=== PATIENT | male | born 1940 | race African-American/Black ===

== ENCOUNTER 2017-12-15 16:10 | Inpatient (IN) | payer MEDICARE, BC ==
[2017-12-15 16:27] LABS: ADD MAN DIFF? NO
[2017-12-15 16:28] LABS: BASO % 0 % (0-3); EOS % 0 % (0-3); HEMATOCRIT 44.8 % (39.0-53.0); HEMOGLOBIN 14.7 g/dL (13.0-17.5); LYMPH # 2.8 x10^3/uL (1.0-4.8); LYMPH % 31 % (24-48); MEAN CORPUSCULAR HEMOGLOBIN 31 pg (25-35); MEAN CORPUSCULAR HGB CONC 33 g/dL (31-37); MEAN CORPUSCULAR VOLUME 94 fL (79-100); MONO # 0.8 x10^3/uL (0.0-1.1); MONO % 8 % (0-9); NEUT # 5.5 x10^3uL (1.8-7.7); NEUT % 60 % (31-73); PLATELET COUNT 184 x10^3/uL (140-400); RED BLOOD COUNT 4.78 x10^6/uL (4.30-5.70); RED CELL DISTRIBUTION WIDTH 15.3 % (11.5-14.5); WHITE BLOOD COUNT 9.1 x10^3/uL (4.0-11.0)
[2017-12-15] MEDS ORDERED: HEPARIN for IV BOLUS 10,000 UNIT/10 ML VIAL. IV (16:30)
[2017-12-15 16:41] LABS: ANION GAP 7 (6-14); BLOOD UREA NITROGEN 14 mg/dL (8-26); BUN/CREATININE RATIO 8 (6-20); CALCIUM 8.6 mg/dL (8.5-10.1); CARBON DIOXIDE 24 mmol/L (21-32); CHLORIDE 105 mmol/L (98-107); CREATININE 1.7 mg/dL (0.7-1.3); GFR 47.4; GLUCOSE 166 mg/dL (70-99); POTASSIUM 3.5 mmol/L (3.5-5.1); SODIUM 136 mmol/L (136-145)
[2017-12-15 16:43] LABS: D-DIMER 2.98 ug/mlFEU (0.00-0.50)
[2017-12-15] MEDS: IPRATRPIUM/ALBUTEROL 0.5/2.5MG 3 ML NEBU. NEB (16:43)
[2017-12-15 16:46] LABS: ALBUMIN 3.4 g/dL (3.4-5.0); ALK PHOS 67 U/L (46-116); ALT (SGPT) 46 U/L (16-63); AST (SGOT) 45 U/L (15-37); TOTAL BILIRUBIN 0.6 mg/dL (0.2-1.0); TOTAL PROTEIN 6.9 g/dL (6.4-8.2)
[2017-12-15] MEDS ORDERED: IODIXANOL 320 MG/ML 100 ML VIAL. ×2 (16:46→17:10)
[2017-12-15] MEDS ORDERED: LIDOCAINE 2% 20 ML VIAL. (16:46)
[2017-12-15] MEDS: ASPIRIN CHEWABLE 81 MG TABLET. PO (16:47)
[2017-12-15] MEDS ORDERED: HEPARIN for IV BOLUS 10,000 UNIT/10 ML VIAL. (16:48)
[2017-12-15] MEDS ORDERED: MIDAZOLAM HCL/PF 2 MG/2 ML VIAL. (16:48)
[2017-12-15] MEDS ORDERED: fentaNYL PF VIAL 100 MCG/2 ML VIAL (16:48)
[2017-12-15] MEDS: FUROSEMIDE 40 MG/4 ML VIAL. IVP (16:48)
[2017-12-15 16:50] LABS: TROPONINI 0.334 ng/mL (0.000-0.055)
[2017-12-15 16:51] LABS: NT-PRO BNP 4391 pg/mL (0-449)
[2017-12-15] MEDS: HEPARIN for IV BOLUS 10,000 UNIT/10 ML VIAL. IV ×2 (16:52→17:51)
[2017-12-15 16:59] LABS: LACTIC ACID 3.6 mmol/L (0.4-2.0)
[2017-12-15] MEDS ORDERED: HEPARIN 25,000UTS/500ML PREMIX 500 ML IV (17:00)
[2017-12-15 17:01] LABS: INR 1.1 (0.8-1.1); PROTHROMBIN TIME PATIENT 13.2 SEC (11.7-14.0)
[2017-12-15] MEDS ORDERED: TIROFIBAN 5MG -0.9% NS 100 ML IV (17:15)
[2017-12-15] MEDS: TIROFIBAN 5MG -0.9% NS 100 ML IV (17:21)
[2017-12-15] MEDS ORDERED: PRASUGREL 10 MG TABLET. (17:37)
[2017-12-15] MEDS: IODIXANOL 320 MG/ML 100 ML VIAL. IART (17:47)
[2017-12-15] MEDS: LIDOCAINE 2% 20 ML VIAL. IJ (17:47)
[2017-12-15] MEDS: PRASUGREL 10 MG TABLET. PO (17:52)
[2017-12-15] MEDS ORDERED: LIDOCAINE 2% 100 MG/5 ML SYRINGE. IV (18:00)
[2017-12-15] MEDS ORDERED: 0.9 % SODIUM CHLORIDE 10 ML DISP.SYRIN. IV (18:00)
[2017-12-15] MEDS ORDERED: AMIODARONE 150 MG in IV DEXTROSE 5% 100ML 100 ML IV (18:00)
[2017-12-15] MEDS ORDERED: ATROPINE 0.5 MG/5 ML DISP.SYRINGE. IV (18:00)
[2017-12-15] MEDS ORDERED: fentaNYL PF VIAL 100 MCG/2 ML VIAL IV (18:00)
[2017-12-15] MEDS ORDERED: ACETAMINOPHEN 325 MG TABLET. PO (18:00)
[2017-12-15] MEDS ORDERED: NITROGLYCERIN SUBLINGUAL 0.4 MG BOTTLE OF 25. SL (18:00)
[2017-12-15 20:23] LABS: LACTIC ACID 1.3 mmol/L (0.4-2.0); TROPONINI 20.459 ng/mL (0.000-0.055)
[2017-12-15 20:28] LABS: CKMB INDEX 4.8 % (0-4); CKMB MASS 19.6 ng/mL (0.0-3.6); CREATINE KINASE 409 U/L (39-308)
[2017-12-15] MEDS: ATORVASTATIN CALCIUM 40 MG TABLET. PO (21:15)
[2017-12-15] MEDS: ALBUTEROL SULFATE 2.5 MG/3 ML NEBU. NEB (22:44)
[2017-12-16 04:42] LABS: CKMB INDEX 5.6 % (0-4); CKMB MASS 24.6 ng/mL (0.0-3.6); CREATINE KINASE 441 U/L (39-308)
[2017-12-16 04:48] LABS: ALBUMIN 2.7 g/dL (3.4-5.0); ALK PHOS 56 U/L (46-116); ALT (SGPT) 39 U/L (16-63); ANION GAP 6 (6-14); AST (SGOT) 80 U/L (15-37); BLOOD UREA NITROGEN 13 mg/dL (8-26); CARBON DIOXIDE 26 mmol/L (21-32); CHLORIDE 107 mmol/L (98-107); CHOLESTEROL 173 mg/dL (0-200); CREATININE 1.5 mg/dL (0.7-1.3); DIRECT BILIRUBIN 0.2 mg/dL (0.0-0.2); GFR 54.8; GLUCOSE 92 mg/dL (70-99); HDLC 58 mg/dL (40-60); LDLC 104 mg/dL (0-100); NON-HDL CHOLESTEROL 115 mg/dL (0-129); POTASSIUM 3.7 mmol/L (3.5-5.1); SODIUM 139 mmol/L (136-145); TOTAL BILIRUBIN 0.7 mg/dL (0.2-1.0); TOTAL PROTEIN 5.8 g/dL (6.4-8.2); TRIGLYCERIDES 57 mg/dL (0-150); VLDLC 11 mg/dL (0-40)
[2017-12-16 04:58] LABS: TROPONINI 36.024 ng/mL (0.000-0.055)
[2017-12-16 05:02] LABS: THYROID STIM HORMONE (TSH) 2.155 uIU/mL (0.358-3.74)
[2017-12-16] MEDS: PRASUGREL 10 MG TABLET. PO (08:25)
[2017-12-16] MEDS: ASPIRIN ENTERIC COATED 81 MG TABLET.DR. PO (08:25)
[2017-12-16 09:35] LABS: ISTAT ACT 160 sec (92-181)
[2017-12-16 10:02] LABS: AGAP ISTAT 17 mmol/L (6-14); BUN ISTAT 14 mg/dL (8-26); CHLORIDE ISTAT 105 mmol/L (98-110); CREATININE ISTAT 1.5 mg/dL (0.5-1.4); GLUCOSE ISTAT 160 mg/dL (70-99); HEMATOCRIT ISTAT 45 % (37-52); HEMOGLOBIN ISTAT 15.3 g/dL (14-18); ION CA ISTAT 1.18 mmol/L (1.13-1.32); POTASSIUM ISTAT 3.5 mmol/L (3.5-5.0); SODIUM ISTAT 138 mmol/L (135-145); TOT CO2 ISTAT 21 mmol/L (23-32)
[2017-12-16 10:04] LABS: TROPONIN BY ISTAT 0.14 ng/ml (<0.08)
[2017-12-16] MEDS ORDERED: ENOXAPARIN 40 MG/0.4 ML SYRINGE. SQ (14:00)
[2017-12-16 14:24] LABS: MRSA BY PCR Negative (Negative)
[2017-12-16] MEDS: ATORVASTATIN CALCIUM 40 MG TABLET. PO (20:51)
[2017-12-16] MEDS: ENOXAPARIN 40 MG/0.4 ML SYRINGE. SQ (20:52)
[2017-12-17 04:34] LABS: ADD MAN DIFF? NO
[2017-12-17 04:45] LABS: BASO % 0 % (0-3); EOS # 0.1 x10^3/uL (0.0-0.7); EOS % 1 % (0-3); HEMATOCRIT 39.6 % (39.0-53.0); HEMOGLOBIN 13.5 g/dL (13.0-17.5); LYMPH # 2.1 x10^3/uL (1.0-4.8); LYMPH % 31 % (24-48); MEAN CORPUSCULAR HEMOGLOBIN 31 pg (25-35); MEAN CORPUSCULAR HGB CONC 34 g/dL (31-37); MEAN CORPUSCULAR VOLUME 92 fL (79-100); MONO # 0.8 x10^3/uL (0.0-1.1); MONO % 11 % (0-9); NEUT # 3.9 x10^3uL (1.8-7.7); NEUT % 57 % (31-73); PLATELET COUNT 141 x10^3/uL (140-400); RED BLOOD COUNT 4.29 x10^6/uL (4.30-5.70); RED CELL DISTRIBUTION WIDTH 15.2 % (11.5-14.5); WHITE BLOOD COUNT 6.8 x10^3/uL (4.0-11.0)
[2017-12-17 05:19] LABS: ANION GAP 7 (6-14); BLOOD UREA NITROGEN 18 mg/dL (8-26); CALCIUM 7.9 mg/dL (8.5-10.1); CARBON DIOXIDE 25 mmol/L (21-32); CHLORIDE 106 mmol/L (98-107); CREATININE 1.7 mg/dL (0.7-1.3); GFR 47.4; GLUCOSE 89 mg/dL (70-99); POTASSIUM 3.8 mmol/L (3.5-5.1); SODIUM 138 mmol/L (136-145)
[2017-12-17] MEDS: PRASUGREL 10 MG TABLET. PO (09:04)
[2017-12-17] MEDS: ASPIRIN ENTERIC COATED 81 MG TABLET.DR. PO (09:05)
== END 2017-12-17 19:02 | disposition home or self-care (01) | DRG 246 ==
LOC: 2 NORTH 12-16 15:26 → ER 16:10 → 1 WEST ICU 16:20
PROC: 027034Z Dilation of Coronary Artery, One Artery with Drug-eluting Intraluminal Device, Percutaneous Approach (ICD-10-PCS; principal; 2017-12-15)
PROC: 4A023N7 Measurement of Cardiac Sampling and Pressure, Left Heart, Percutaneous Approach (ICD-10-PCS; 2017-12-15)
PROC: B2111ZZ Fluoroscopy of Multiple Coronary Arteries using Low Osmolar Contrast (ICD-10-PCS; 2017-12-15)
PROC: B2151ZZ Fluoroscopy of Left Heart using Low Osmolar Contrast (ICD-10-PCS; 2017-12-15)
DX: I21.09 ST elevation (STEMI) myocardial infarction involving other coronary artery of anterior wall (principal); J96.01 Acute respiratory failure with hypoxia; I50.23 Acute on chronic systolic (congestive) heart failure; E78.5 Hyperlipidemia, unspecified; I25.5 Ischemic cardiomyopathy; N18.3 Chronic kidney disease, stage 3 (moderate); I25.2 Old myocardial infarction; Z60.2 Problems related to living alone; I25.10 Atherosclerotic heart disease of native coronary artery without angina pectoris
CPT/HCPCS: 36415; 37184; 71045; 80047; 80048; 80053; 80061; 80076; 82553; 83605; 83880; 84443; 84484; 85025; 85347; 85379; 85610; 87040; 87641; 92941; 93005; 93306; 93458; 94640; 96374; 96375; 97161-GP; 99285; 99285-25; C1713; C1725; C1769; C1892; J1644; J1650; J1940; J2001; J7613; J7620

== ENCOUNTER → 2018-01-14 | Outpatient (CLI) | payer MEDICARE, BC ==
[2018-01-14 13:04] LABS: ANION GAP 6 (6-14); BLOOD UREA NITROGEN 24 mg/dL (8-26); CALCIUM 9.6 mg/dL (8.5-10.1); CARBON DIOXIDE 28 mmol/L (21-32); CHLORIDE 105 mmol/L (98-107); CREATININE 1.6 mg/dL (0.7-1.3); GFR 50.8; GLUCOSE 89 mg/dL (70-99); MAGNESIUM 2.1 mg/dL (1.8-2.4); POTASSIUM 3.9 mmol/L (3.5-5.1); SODIUM 139 mmol/L (136-145)
== END | disposition home or self-care (01) ==
LOC: LAB 12:21
DX: I25.5 Ischemic cardiomyopathy (principal); E78.5 Hyperlipidemia, unspecified; N18.3 Chronic kidney disease, stage 3 (moderate); I25.10 Atherosclerotic heart disease of native coronary artery without angina pectoris; I25.2 Old myocardial infarction; Z87.891 Personal history of nicotine dependence
CPT/HCPCS: 36415; 80048; 83735

== ENCOUNTER → 2018-04-25 | Outpatient (CLI) | payer MEDICARE, BC ==
[2017-12-17 10:45] VITALS: BP 88/59
[~2018-04-25] MED LIST: ASPI-612 PO; ATOR40TA59 PO; MULT1TAB52 PO; PRAS10TA9 PO
--- NOTE | 2018-04-25 10:38 | CARD ---
MR#: [id number] Date of Study: 04/25/2018 Ordering Physician: ARTEMIO RITTER, Referring Physician: ARTEMIO RITTER, Tech: Rosemary Valdez RAMONITA APPROVED REPORT EXAM: Two-dimensional and M-mode echocardiogram with Doppler and color Doppler. Other Information Quality : GoodHR: 66bpm Rhythm : NSR INDICATION Cardiomyopathy 2D DIMENSIONS RVDd3.5 (2.9-3.5cm)Left Atrium(2D)4.4 (1.6-4.0cm) IVSd1.5 (0.7-1.1cm)Aortic Root(2D)4.1 (2.0-3.7cm) LVDd6.2 (3.9-5.9cm)LVOT Diameter2.2 (1.8-2.4cm) PWd0.9 (0.7-1.1cm)LVDs5.3 (2.5-4.0cm) FS (%) 14.3 %SV57.8 ml LVEF(%)30.0 (>50%) M-Mode DIMENSIONS Left Atrium(MM)4.72 (2.5-4.0cm)Aortic Root3.82 (2.2-3.7cm) Aortic Valve AoV Peak Alex.138.4cm/sAoV VTI32.1cm AO Peak GR.7.7mmHgLVOT Peak Alex.97.6cm/s AO Mean GR.4mmHgAVA (VMAX)2.73cm2 EITAN (VTI)2.80uw3ZJ P 1/2 Iwmc340rv Mitral Valve MV E Tbtahgmv42.8cm/sMV E Peak Gr.5mmHg MV DECEL FWLF483sqHT A Jldflqlo600.5cm/s MV E Mean Gr.1mmHgE/A Ratio0.5 MV A Wmhihugt678ze Pulmonary Valve PV Peak Wcahmxco580.9cm/s Tricuspid Valve TR P. Alngveyy601te/sRAP CHOFMTWQ5bmZv TR Peak Gr.85waTxJBBD58tlCa LEFT VENTRICLE The Left Ventricle is mildly dilated. Proximal septal thickening is noted. The systolic function is m oderately impaired. The Ejection Fraction is 30-35%. There is global hypokinesis of the left ventricl e. Transmitral Doppler flow pattern is Grade I-abnormal relaxation pattern. RIGHT VENTRICLE The right ventricle is normal size. There is normal right ventricular wall thickness. The right ventr icular systolic function is normal. ATRIA The left atrium is moderately dilated. The right atrium size is normal. The interatrial septum is int act with no evidence for an atrial septal defect or patent foramen ovale as noted on 2-D or Doppler i maging. AORTIC VALVE The aortic valve is trileaflet. The aortic valve is normal in structure and function. Doppler and Col or Flow revealed mild aortic regurgitation. There is no significant aortic valvular stenosis. MITRAL VALVE The mitral valve is normal in structure and function. There is no evidence of mitral valve prolapse. There is no mitral valve stenosis. Doppler and Color-flow revealed mild mitral regurgitation. TRICUSPID VALVE The tricuspid valve is normal in structure and function. Doppler and Color Flow revealed trace to mil d tricuspid regurgitation. The PA pressure was estimated at 31 mmHg. There is no tricuspid valve prol apse or vegetation. There is no tricuspid valve stenosis. PULMONIC VALVE Doppler and Color Flow revealed trace pulmonic valvular regurgitation. There is no pulmonic valvular stenosis. GREAT VESSELS The aortic root is mildly enlarged. The ascending aorta is normal in size. The IVC is normal in size and collapses >50% with inspiration. PERICARDIAL EFFUSION There is a trace pericardial effusion. Critical Notification Critical Value: No <Conclusion> The systolic function is moderately impaired. The Ejection Fraction is 30-35%. There is global hypokinesis of the left ventricle. Doppler and Color Flow revealed trace to mild tricuspid regurgitation. The PA pressure was estimated at 31 mmHg. Signed by : Artemio Ritter, Electronically Approved : 04/25/2018 10:37:42
== END | disposition home or self-care (01) ==
LOC: ECHO 08:12
PROVIDERS: ATTEND Internal Medicine Cardiovascular Disease
DX: I08.3 Combined rheumatic disorders of mitral, aortic and tricuspid valves (principal)
CPT/HCPCS: 93306

== ENCOUNTER → 2018-10-31 | Outpatient (CLI) | payer MEDICARE, BC ==
[2017-12-17 10:45] VITALS: BP 88/59
--- NOTE | 2018-10-31 09:04 | CARD ---
MR#: [id number] Date of Study: 10/31/2018 Ordering Physician: ARTEMIO RITTER, Referring Physician: ARTEMIO RITTER, Tech: Rosemary Valdez [facility] APPROVED REPORT EXAM: Two-dimensional and M-mode echocardiogram with Doppler and color Doppler. Other Information Quality : Good Rhythm : NSR INDICATION Cardiomyopathy 2D DIMENSIONS RVDd3.5 (2.9-3.5cm)Left Atrium(2D)4.5 (1.6-4.0cm) IVSd1.2 (0.7-1.1cm)Aortic Root(2D)4.0 (2.0-3.7cm) LVDd5.9 (3.9-5.9cm)LVOT Diameter2.1 (1.8-2.4cm) PWd1.1 (0.7-1.1cm)LVDs4.8 (2.5-4.0cm) FS (%) 15.3 %SV51.1 ml LVEF(%)32.0 (>50%) M-Mode DIMENSIONS Left Atrium(MM)4.90 (2.5-4.0cm)Aortic Root4.16 (2.2-3.7cm) Aortic Valve AoV Peak Alex.120.1cm/sAoV VTI23.0cm AO Peak GR.5.8mmHgLVOT Peak Alex.102.8cm/s AO Mean GR.3mmHgAVA (VMAX)3.03cm2 EITAN (VTI)3.26sz1HO P 1/2 Nfar085rk Mitral Valve MV E Ocjpgygp29.0cm/sMV E Peak Gr.103mmHg MV DECEL SQDH361ukFD A Ohcnmdxi58.6cm/s MV E Mean Gr.1mmHgE/A Ratio1.2 MV A Obbdpxyp222jp Pulmonary Valve PV Peak Rurmhihq715.8cm/s Tricuspid Valve TR P. Lbujpbkl609al/sRAP EDXIDHFE2tzEa TR Peak Gr.50eqUiMADY35zxMm LEFT VENTRICLE The Left Ventricle is mildly dilated. There is mild concentric left ventricular hypertrophy. The left ventricular systolic function is moderately impaired. The Ejection Fraction is 35-40%. There is glob al hypokinesis of the left ventricle. Transmitral Doppler flow pattern is Grade II-pseudonormal filli ng dynamics. RIGHT VENTRICLE The right ventricle is borderline dilated. There is normal right ventricular wall thickness. The righ t ventricular systolic function is normal. ATRIA The left atrium is mildly dilated. The right atrium is mildly dilated. The interatrial septum is inta ct with no evidence for an atrial septal defect or patent foramen ovale as noted on 2-D or Doppler im aging. AORTIC VALVE The aortic valve is normal in structure and function. The aortic valve is trileaflet. Doppler and Col or Flow revealed mild aortic regurgitation. There is no significant aortic valvular stenosis. MITRAL VALVE The mitral valve is thickened but opens well. There is no evidence of mitral valve prolapse. There is no mitral valve stenosis. Doppler and Color-flow revealed mild to moderate mitral regurgitation. TRICUSPID VALVE The tricuspid valve is normal in structure and function. Doppler and Color Flow revealed mild tricusp id regurgitation. There is mild pulmonary hypertension. The PA pressure was estimated at 33 mmHg. The re is no tricuspid valve prolapse or vegetation. There is no tricuspid valve stenosis. PULMONIC VALVE The pulmonic valve is not well visualized. GREAT VESSELS The aortic root is mildly enlarged. The ascending aorta is normal in size. The IVC is normal in size and collapses >50% with inspiration. PERICARDIAL EFFUSION There is no evidence of significant pericardial effusion. Critical Notification Critical Value: No <Conclusion> The left ventricular systolic function is moderately impaired. The Ejection Fraction is 35-40%. Mild aortic regurgitation. Mild to moderate mitral regurgitation. Mild tricuspid regurgitation. The PA pressure was estimated at 33 mmHg. There is no evidence of significant pericardial effusion. Signed by : Adin Goncalves, Electronically Approved : 10/31/2018 09:03:43
== END | disposition home or self-care (01) ==
LOC: ECHO 07:20
PROVIDERS: ATTEND Internal Medicine Cardiovascular Disease
DX: I08.3 Combined rheumatic disorders of mitral, aortic and tricuspid valves (principal); I27.20 Pulmonary hypertension, unspecified; I25.5 Ischemic cardiomyopathy
CPT/HCPCS: 93306

== ENCOUNTER → 2019-12-01 | Outpatient (CLI) | payer MEDICARE, BC ==
[2017-12-17 10:45] VITALS: BP 88/59
[~2019-12-01] MED LIST changes: +MULT-445 PO; -MULT1TAB52 PO; +REGADENOSON 0.4 MG/5 ML DISP.SYRIN. IV ONE
--- NOTE | 2019-12-01 12:53 | RAD ---
MR#: [id number] Date of Study: 12/01/2019 Ordering Physician: ARTEMIO RITTER, Referring Physician: JEFF LAMB Tech: RT [place] (R) (N) APPROVED REPORT Test Type: Pharmacological Stress Nurse/Tech: Perri VILLAVICENCIO Test Indications: Ischemic Cardiomyopathy Cardiac History: Cardiac stent x1, See EMR Medications: See EMR Medical History: See EMR Resting ECG: SR Resting Heart Rate: 65 bpm Resting Blood Pressure: 126/77mmHg Pretest Chest Pain: No chest pain Nurse/Tech Notes Lungs CTA, Heart tones regular. Consent: The procedure was explained to the patient in lay terms. Informed consent was witnessed. Rogelio eout was entered into [employer]. History and Stress Test performed by ASHLEIGH Roca Pharm. Details Pharmacologic stress testing was performed using 0.4mg per 5ml of regadenoson given intravenously ove r 7-10 seconds. POST EXERCISE Reason for Termination: Infusion complete Max HR: 94 bpm Max Blood Pressure: 126/67mmHg Blood Pressure response to exercise: Normal blood pressure response during stress. Heart Rate response to exercise: WNL Chest Pain: No. Arrhythmia: Yes. few PVCs ST Change: No. INTERPRETATION Stress EKG Conclusion: Baseline EKG showed sinus rhythm. No ischemic changes at peak stress. Few PV Cs without any significant arrhythmias. Imaging Protocol IMAGE PROTOCOL: Rest Tc-99m/stress Tc-99m 1 day Rest: Stress: Viability: Radiopharm.Tc99m XmlcsrkflBe93m Sestamibi Npbs99oEu 32.6mCi Duration 15min. 10min. Img Date 12/01/2019 12/01/2019 Inj-Img Ipai43gyq. 60min. Rest Admin Site:IV - Left HandAdministrator:RT Reinaldo (Zo)(N) Stress Admin Site: IV - Left HandAdministrator: ASHLEIGH Roca STRESS DATA Av. Heart Rate74.0bpmCO Index BSA0.0L/min LV Perfusion Scintigraphic images showed a large predominantly fixed defect involving the entire lateral wall, ext ending into the anterolateral, inferolateral and inferior hensley consistent with previous myocardial i nfarction with small amount of reversibility consistent with chuy-infarct ischemia. Wall Motion Severe hypokinesis of the lateral wall with ejection fraction calculated at 44%. LV Perf. Quant 17 Seg. SSS28.00 17 Seg. SRS28.00 17 Seg. SDS3.00 Stress Defect Extent (% LAD)11.30Rest Defect Extent (% LAD)2.50Rev. Defect Extent (% LAD)11.30 Stress Defect Extent (% LCX) 100.00Rest Defect Extent (% LCX)96.30Rev. Defect Extent (% LCX)33.8 0 Stress Defect Extent (% RCA)30.00Rest Defect Extent (% RCA)66.70Rev. Defect Extent (% RCA)21.10 Stress Defect Extent (% TAMMY)43.00Rest Defect Extent (% TAMMY)40.70Rev. Defect Extent (% TAMMY)28.90 Conclusion 1. Regadenoson cardioisotope stress test showed large infarct involving the entire lateral wall and e xtending into the anterolateral, inferolateral and inferior hensley with small amount of chuy-infarct i schemia. 2. Severe hypokinesis of the lateral wall with ejection fraction calculated at 44%. 3. Low to intermediate risk for cardiac events. Signed by : Adin Goncalves, Electronically Approved : 12/01/2019 12:53:17
== END | disposition home or self-care (01) ==
LOC: NM 08:30
PROVIDERS: ATTEND Internal Medicine Cardiovascular Disease
DX: I21.19 ST elevation (STEMI) myocardial infarction involving other coronary artery of inferior wall (principal); I25.9 Chronic ischemic heart disease, unspecified; I25.5 Ischemic cardiomyopathy
CPT/HCPCS: 78452; 93017; A9500; J2785

== ENCOUNTER → 2020-04-25 | Outpatient (CLI) | payer MEDICARE, BC ==
[2017-12-17 10:45] VITALS: BP 88/59
[~2020-04-25] MED LIST changes: -ASPI-612 PO; +ASPI-886 PO; +LISI2.5T PO; +METO-239 PO; -REGADENOSON 0.4 MG/5 ML DISP.SYRIN. IV ONE
[2020-04-25 15:57] LABS: BASO % 0 % (0-3); EOS # 0.1 x10^3/uL (0.0-0.7); EOS % 2 % (0-3); HEMOGLOBIN 13.9 g/dL (13.0-17.5); LYMPH # 2.1 x10^3/uL (1.0-4.8); LYMPH % 34 % (24-48); MEAN CORPUSCULAR HEMOGLOBIN 31 pg (25-35); MEAN CORPUSCULAR HGB CONC 34 g/dL (31-37); MEAN CORPUSCULAR VOLUME 90 fL (79-100); MONO # 0.6 x10^3/uL (0.0-1.1); MONO % 10 % (0-9); NEUT # 3.3 x10^3/uL (1.8-7.7); NEUT % 54 % (31-73); PLATELET COUNT 155 x10^3/uL (140-400); RED BLOOD COUNT 4.53 x10^6/uL (4.30-5.70); RED CELL DISTRIBUTION WIDTH 13.9 % (11.5-14.5); WHITE BLOOD COUNT 6.1 x10^3/uL (4.0-11.0)
[2020-04-25 16:06] LABS: PROTHROMBIN TIME PATIENT 13.3 SEC (11.7-14.0)
[2020-04-25 16:16] LABS: ALBUMIN 3.4 g/dL (3.4-5.0); ALBUMIN/GLOBULIN RATIO 0.9 (1.0-1.7); CALCIUM 9.2 mg/dL (8.5-10.1); CREATININE 1.5 mg/dL (0.7-1.3); GFR 54.3; POTASSIUM 3.9 mmol/L (3.5-5.1); TOTAL BILIRUBIN 0.4 mg/dL (0.2-1.0); TOTAL PROTEIN 7.3 g/dL (6.4-8.2)
== END ==
LOC: SURGPAT 15:09
PROVIDERS: ATTEND Specialist
DX: Z01.812 Encounter for preprocedural laboratory examination (principal); K40.90 Unilateral inguinal hernia, without obstruction or gangrene, not specified as recurrent; Z20.828 Contact with and (suspected) exposure to other viral communicable diseases
CPT/HCPCS: 80053; 85025; 85610; 85730; U0003

== ENCOUNTER 2020-04-29 07:34 | Day surgery (SDC) | payer MEDICARE, BC ==
[~2020-04-29] VITALS: Ht 175.3 cm; Wt 74.8 kg
[~2020-04-29 07:34] MED LIST changes: +BUPIVACAINE-EPI 0.5%-1:200000 MPF 30 ML VIAL. INJ ONE; +HYDROmorphone 2 MG/ML VIAL IV PRN; +IV RINGERS,LACTATED 1000ML 1,000 ML IV SCH; +LIDOCAINE 1% PF 2 ML VIAL. ID PRN; +MORPHINE SULFATE 2 MG/ML VIAL. IV PRN; +ONDANSETRON PF 4 MG/2 ML VIAL. IV PRN; +PROCHLORPERAZINE 10 MG/2 ML VIAL. IV PRN; +ceFAZolin SODIUM IV Push 1 GM VIAL. IVP PRN; +fentaNYL PF VIAL 100 MCG/2 ML VIAL IV PRN
--- NOTE | 2020-04-29 08:00 | PREOP HP ---
DATE OF SERVICE: HISTORY OF PRESENT ILLNESS: The patient is referred to me because of a mass in the left inguinal area. The history is that he has had this for a few months, it is getting larger and it goes down sometimes, but most of the time it is up, has some discomfort, but no excruciating pain. PAST MEDICAL HISTORY: Shows normal childhood diseases. He denies any surgery, but has had a heart attack about 3-4 years ago and had a stent put in. He takes heart medicine and also takes anticoagulant, but he does not know what type at this point. He has no allergies and he states not to take medicine for any other diseases. ALLERGIES: He has no allergies. REVIEW OF SYSTEMS: Negative as he had no other difficulties except for this mass, which causes him some problems in the left inguinal area. FAMILY HISTORY: Noncontributory. PHYSICAL EXAMINATION: GENERAL: Shows an alert male, in no acute distress. HEAD, EYES, EARS, NOSE, AND THROAT: Grossly normal. CHEST: Clear to auscultation bilaterally. HEART: Had a regular rate of 70 beats per minute. No murmurs or friction rubs are noted. ABDOMEN: Grossly normal. Examination of the lower part of the abdomen shows at this point a nonreducible mass in the left inguinal area. It is minimally tender, but not excruciating and he has no GI symptoms. EXTREMITIES: Grossly normal. RECTAL: Not done. IMPRESSION: 1. Arteriosclerotic heart disease. 2. Coronary artery disease. 3. Left inguinal hernia. PLAN: I spoke to him about having it repaired. He wishes to have it repaired. We will make arrangements. He will see the dry plasterer helper and we will make arrangements to repair the left inguinal hernia at a time and date that is satisfactory with him. FLORY MORILLO MD DR: RAYA/cele JOB#: [id number] / [id number]
[2020-04-29] MEDS ORDERED: LIDOCAINE 2% PF 5 ML VIAL. ONE (08:17)
[2020-04-29] MEDS ORDERED: PROPOFOL 10 MG/ML (20ML) VIAL. IV ONE (08:17)
[2020-04-29] MEDS ORDERED: ROCURONIUM 50 MG/5 ML VIAL. ONE (08:18)
[2020-04-29] MEDS ORDERED: fentaNYL PF VIAL 100 MCG/2 ML VIAL ONE (08:18)
--- NOTE | 2020-04-29 09:34 | PDOC ---
SURGICAL PROGRESS NOTE DATE: 04/29/20 TIME: 09:33 No change in dictated H&P. Vital Signs Vital Signs Date Time Temp Pulse Resp B/P (MAP) Pulse Ox O2 Delivery O2 Flow Rate FiO2 04/29/20 08:23 98.3 85 18 126/77 98 Room Air 98.3 Justicifation of Admission Dx: Justifications for Admission: Justification of Admission Dx: Yes FLORY MORILLO MD Apr 29, 2020 09:34
--- NOTE | 2020-04-29 09:36 | PDOC ---
SURGICAL PROGRESS NOTE DATE: 04/29/20 TIME: 09:34 Op NOte: Surgeon................................................Keith Pre and post op diag...............................incar left inguinal hernia Procedure.............................................Repair Incar ing hernia Anesthesia............................................general Blood loss..............................................10cc Drains...................................................none Fluids...................................................see anesthesia sheet Condition..............................................satisfactory Vital Signs Vital Signs Date Time Temp Pulse Resp B/P (MAP) Pulse Ox O2 Delivery O2 Flow Rate FiO2 04/29/20 08:23 98.3 85 18 126/77 98 Room Air 98.3 Justicifation of Admission Dx: Justifications for Admission: Justification of Admission Dx: Yes FLORY MORILLO MD Apr 29, 2020 09:36
[2020-04-29] MEDS ORDERED: PHENYLEPHRINE in 0.9% NACL PF 1 MG/10 ML SYRINGE. IV ONE (09:48)
[2020-04-29] MEDS ORDERED: ONDANSETRON PF 4 MG/2 ML VIAL. ONE (09:48)
[2020-04-29] MEDS ORDERED: DEXAMETHASONE SOD PHOS 4 MG/ML VIAL ONE ×2 (09:48→11:39)
[2020-04-29] MEDS ORDERED: SEVOFLURANE 61 TO 120 MINUTES. IH ONE (10:00)
[2020-04-29] MEDS ORDERED: HYDROcodone/APAP 7.5/325MG 1 TAB TABLET PO ONE (10:00)
[2020-04-29] MEDS ORDERED: NEOSTIGMINE METHYLSULFATE 5 MG/5 ML SYRINGE. ONE (10:01)
[2020-04-29] MEDS ORDERED: GLYCOPYRROLATE 1 MG/5 ML VIAL. ONE (10:02)
[2020-04-29] MEDS ORDERED: BUPIVACAINE MPF 0.5% 30 ML VIAL. IJ ONE (11:29)
[2020-04-29] MEDS ORDERED: BUPIVACAINE-EPI 0.5%-1:200000 MPF 30 ML VIAL. INJ ONE (11:30)
--- NOTE | 2020-04-29 12:05 | DISCH ---
DISCHARGE INSTRUCTIONS Activity After Discharge Activity Instructions for Disc: Avoid exertion Lifting Instructions after Dis: No heavy lifting, No pulling or pushing, Do not lift >10 pounds Diet after Discharge Diet after Discharge: No Added Salt Additional Diet Restrictions: diet as pre op and as tolrated Wound Incision Care Wound/Incision Care: May get incision wet Other wound/incision instructi: leave dressing on as long as possible Follow-Up Follow up with: Keith in 2 weeks...call and make appt FLORY MORILLO MD Apr 29, 2020 12:05
[2020-04-29] MEDS ORDERED: ceFAZolin SODIUM IV Push 1 GM VIAL. IVP ONE (12:15)
[2020-04-29 13:05] VITALS: BP 135/84
--- NOTE | 2020-04-30 01:29 | OP ---
DATE OF SURGERY: 04/29/2020 SURGEON: Jake Morillo MD PREOPERATIVE DIAGNOSIS: Incarcerated left inguinal hernia. POSTOPERATIVE DIAGNOSIS: Incarcerated left inguinal hernia. ANESTHESIA: General. PROCEDURE: Repair of incarcerated left inguinal hernia. TECHNIQUE: Under general anesthesia, the patient was properly prepped and draped in routine fashion. Skin incision was made in a transverse fashion following the skin line in the right groin. This was carried down through the skin with a 15 blade. We then went through the subcutaneous with cautery down to the fascia. We then opened the fascia, the external oblique aponeurosis in the direction of the fibers by making a small incision in the fascia undermining this with scissors and going down to the external inguinal ring. We opened it down to the air. We then placed clamps on either side of the fascia taking the cord structures and pushed them away from the tissues. We then encircled the cord structures at the pubic tubercle and pulled up. Some of the cremasteric fibers were divided. The cord was fairly large. There was a mass there. We were able to reduce this and then dissected the cord using Metzenbaum scissors and pushing away, identified the sac and then pushed the tissue away. There was a lot of preperitoneal fat that was lateral to the cord going down in the inguinal canal. We then were able to free that up along with the sac up high into the internal inguinal ring. The fat was lateral to the cord and the sac was medial. We then reduced the fat and placed the PerFix plug and sutured it in place to the tissues around it. We went well up into the inguinal ring and medially we placed a large PerFix plug inverting the sac placing it high up into the internal inguinal ring. This stayed well and we then sutured this plug in place with 3-0 Vicryl. We then placed a patch over the area, made a small opening in it so that it could go around the cord structures, and slowly at the pubic tubercle, we placed 2-0 Prolene sutures through this mesh. We laid it flat in the posterior floor around the cord structures and then used 2-0 Vicryl to go around the cord structures and sutured this in place. We made it so that it would not be strangulating the cord structures that was not too tight. We then ran the lateral most 0 Prolene suture taking shelving edge of Poukush's ligament up to and well past the internal inguinal ring. The medial one we ran taking transversalis fascia around it up around and over the internal inguinal ring and back to the ilioinguinal ligament. These were then tied. The patch was then placed and laid flat. No abnormalities were noted. There was no bleeding. It should be noted that generally doing the procedure there was just a little more bleeding than normal as he had been taking aspirin. He did not stop. There was no bleeding at the time of closure and we then inspected the area. We used 0.5% Marcaine with epinephrine and injected it into the suture line and the fascia. The cord was laid back in its normal position along with the ilioinguinal nerve and then the external oblique aponeurosis was approximated using 2-0 Prolene suture. This terminated the procedure and all was in normal position and we then irrigated the wound with saline and then approximated the deeper tissues using 4-0 Vicryl and closed the skin using a subcuticular 5-0 Vicryl. The procedure was now terminated and sterile Tegaderm dressing was applied. The blood loss during the procedure was probably 10-12 mL. Fluids given can be obtained from the anesthesia sheet. No drains were used and the condition of the patient was satisfactory as he has returned to the recovery room. JAKE MORILLO MD DR: RAYA/cele JOB#: [id number] / [id number]
== END 2020-04-29 13:45 | disposition home or self-care (01) ==
LOC: SURG 07:34
PROVIDERS: ATTEND Specialist
DX: K40.30 Unilateral inguinal hernia, with obstruction, without gangrene, not specified as recurrent (principal); I25.10 Atherosclerotic heart disease of native coronary artery without angina pectoris; J44.9 Chronic obstructive pulmonary disease, unspecified; K21.9 Gastro-esophageal reflux disease without esophagitis; M19.90 Unspecified osteoarthritis, unspecified site; F32.9 Major depressive disorder, single episode, unspecified; Z87.891 Personal history of nicotine dependence; Z79.82 Long term (current) use of aspirin; Z79.899 Other long term (current) drug therapy; Z98.890 Other specified postprocedural states
CPT/HCPCS: 49507; A7015; C1781; J0690; J1100; J2370; J2405; J2704; J2710; J3010; J3490